=== PATIENT | female | born 1975 | race Caucasian/White ===

== ENCOUNTER 2021-06-08 12:02 | Emergency (ER) | payer SELFPAY ==
[~2021-06-08] VITALS: Ht 167.6 cm; Wt 112.1 kg
[~2021-06-08 12:02] MED LIST: BUPR150T15 PO; HYDR-2761 PO; HYDR50CA PO; IBUP400T99 PO
[2021-06-08] MEDS ORDERED: ONDANSETRON PF 4 MG/2 ML VIAL. IVP ONE (12:45)
[2021-06-08 13:00] LABS: BASO # 0.1 x10^3/uL (0.0-0.2); BASO % 1 % (0-3); EOS # 0.3 x10^3/uL (0.0-0.7); EOS % 4 % (0-3); HEMATOCRIT 35.6 % (36.0-47.0); HEMOGLOBIN 12.5 g/dL (12.0-15.5); LYMPH # 2.3 x10^3/uL (1.0-4.8); LYMPH % 32 % (24-48); MEAN CORPUSCULAR HEMOGLOBIN 34 pg (25-35); MEAN CORPUSCULAR HGB CONC 35 g/dL (31-37); MEAN CORPUSCULAR VOLUME 96 fL (79-100); MONO # 0.4 x10^3/uL (0.0-1.1); MONO % 5 % (0-9); NEUT # 4.1 x10^3/uL (1.8-7.7); NEUT % 57 % (31-73); PLATELET COUNT 257 x10^3/uL (140-400); RED BLOOD COUNT 3.72 x10^6/uL (3.50-5.40); RED CELL DISTRIBUTION WIDTH 15.8 % (11.5-14.5); WHITE BLOOD COUNT 7.2 x10^3/uL (4.0-11.0)
[2021-06-08] MEDS ORDERED: fentaNYL PF VIAL 100 MCG/2 ML VIAL IVP ONE ×2 (13:00→15:45)
--- NOTE | 2021-06-08 13:11 | RAD ---
AP chest. HISTORY: Epigastric pain AP portable view was taken of the chest. Comparison is made with a study from February 27, 2021. Ther e is no effusion. The heart is normal in size. Patient's taken a poor inspiration. There is mild line ar scarring or atelectasis near the left costophrenic angle similar to the prior study. No new conflu ent infiltrates are noted. IMPRESSION: 1. Poor inspiration. 2. No acute infiltrates. Electronically signed by: Geovany Marley MD (06/08/2021 1:09 PM) [facility]
[2021-06-08 13:19] LABS: INFLUENZA A PATIENT NEGATIVE (NEGATIVE); INFLUENZA B PATIENT NEGATIVE (NEGATIVE)
[2021-06-08 13:31] LABS: BACTERIA,URINE MANY /HPF (0-FEW); RBC,URINE OCC /HPF (0-2)
[2021-06-08 14:14] LABS: CALCIUM 8.7 mg/dL (8.5-10.1); CREATININE 0.9 mg/dL (0.6-1.0); GFR 67.7; POTASSIUM 4.1 mmol/L (3.5-5.1)
[2021-06-08 14:20] LABS: ALBUMIN 3.8 g/dL (3.4-5.0); ALBUMIN/GLOBULIN RATIO 0.9 (1.0-1.7); TOTAL BILIRUBIN 0.1 mg/dL (0.2-1.0)
[2021-06-08] MEDS ORDERED: IOHEXOL 300 MG/ML 100ML VIAL. IV ONE (14:30)
[2021-06-08] MEDS ORDERED: CONTRAST GIVEN. MC PRN (14:30)
--- NOTE | 2021-06-08 14:54 | RAD ---
CT abdomen pelvis with contrast. HISTORY: Epigastric pain, history of hernia CT abdomen pelvis was done using 75 mL Omnipaque 300 contrast. Comparison is made with a prior study from February 24, 2021. Lung bases are clear. Except for mild atelectasis. There is no effusion. A sommer er lesion is not identified. Spleen is unremarkable. Adrenal glands are normal. Pancreas is normal. T here is no mass or hydronephrosis in the kidneys. There is a 3 mm calculus in the lower left kidney. A ureteral calculus is not identified. There is an anterior abdominal wall hernia in the upper abdome n with fat or mesentery extending through the hernia. There is inflammation in the subcutaneous tissu es of the anterior abdominal wall inferior to the right of the hernia. There is mesh right side of th e abdomen from previous hernia surgery. Recurrent hernia is just cephalad and medial to the mesh. The re is no small bowel obstruction. Bladder is mildly distended. Uterus and ovaries are unremarkable. T here is moderate stool in the colon. There is mild gaseous distention of the colon. IMPRESSION: 1. Recurrent anterior abdominal wall hernia in the upper abdomen in the midline. 2. Changes from previous hernia surgery. 3. Mild subcutaneous inflammation right upper abdomen. 4. Mild stool and gas in the colon with mild distention. 5. Intrarenal calculus left kidney. PQRS Compliance Statement: One or more of the following individualized dose reduction techniques were utilized for this examinat ion: 1. Automated exposure control 2. Adjustment of the mA and/or kV according to patient size 3. Use of iterative reconstruction technique Electronically signed by: Geovany Marley MD (06/08/2021 2:51 PM) [facility] [place]
[2021-06-08 15:06] VITALS: BP 104/67
[2021-06-08] MEDS ORDERED: KETO10TA PO (15:51)
[2021-06-08] MEDS ORDERED: CEPH500C PO (15:51)
[2021-06-08] MEDS ORDERED: PSYL0.5215 PO (15:51)
--- NOTE | 2021-06-08 15:56 | PHYS DOC ---
Past Medical History Past Medical History: Hypothyroid Past Surgical History: Appendectomy, Cholecystectomy, Additional Past Surgical Histo: growth removed from right leg, hernia repair Smoking Status: Current Every Day Smoker Additional Information: 03/20 ppd Alcohol Use: None Drug Use: None Adult General Chief Complaint Chief Complaint: ABDOMINAL PAIN HPI HPI Patient is a 46 year old female presents with abdominal pains been present for the last 3 days or so. This is generalized and crampy but a bit worse in the right upper quadrant. Patient has a history of a ventral wall hernia with prior mesh repair. The hernia has become recurrent though. She has not had a fever, chest pain, shortness of breath. She has had some loose stools over the last few days as well. No blood in her stools. No dysuria. Review of Systems Review of Systems Constitutional: Denies fever Eyes: Denies change in visual acuity or eye pain HENT: Denies sore throat Respiratory: Denies shortness of breath Cardiovascular: Denies chest pain GI: Reports abd pain : Denies dysuria Musculoskeletal: Denies back or extremity injury Integument: Denies rash or skin lesions Neurologic: Denies headache, focal weakness or sensory changes All other systems were reviewed and found to be within normal limits, except as documented in this note. Current Medications Current Medications Current Medications Medications (Trade) Dose Ordered Sig/Juan Start Time Stop Time Status Last Admin Dose Admin Fentanyl Citrate (Fentanyl 2ml Vial) 50 mcg 1X ONCE 06/08/21 15:45 06/08/21 15:46 DC 06/08/21 15:40 50 MCG Info (CONTRAST GIVEN -- Rx MONITORING) 1 each PRN DAILY PRN 06/08/21 14:30 06/10/21 14:29 Iohexol (Omnipaque 300 Mg/ml) 75 ml 1X ONCE 06/08/21 14:30 06/08/21 14:31 DC 06/08/21 14:30 75 ML Ondansetron HCl (Zofran) 4 mg 1X ONCE 06/08/21 12:45 06/08/21 12:46 DC 06/08/21 13:02 4 MG Allergies Allergies Allergies Coded Allergies Type Severity Reaction Last Updated Verified Penicillins Allergy Severe hives, throat swells shut 02/25/21 No morphine Allergy Intermediate hives, anxiety 06/08/21 Yes I S O L A T I O N *CONTACT* Allergy Unknown 02/28/21 Yes Physical Exam Physical Exam Constitutional: Well developed, well nourished, no acute distress, non-toxic appearance. HENT: Normocephalic, atraumatic, bilateral external ears normal, mucosa moist, nose normal. Eyes: EOMI, conjunctiva normal, no discharge. Neck: Normal range of motion, supple, no stridor, no meningeal signs. Cardiovascular: Regular rate and rhythm Lungs & Thorax: Bilateral breath sounds clear to auscultation Abdomen: Soft, large anterior ventral wall hernia present, easily reducible. Skin: Warm, dry, no erythema, no rash. Extremities: No tenderness, no cyanosis, no clubbing, ROM intact, no edema. Neurologic: Alert and oriented, normal motor function, normal sensory function, no focal deficits noted. Psychologic: Affect normal, judgement normal, mood normal. Current Patient Data Vital Signs Vital Signs Date Time Temp Pulse Resp B/P (MAP) Pulse Ox O2 Delivery O2 Flow Rate FiO2 06/08/21 15:40 14 99 Room Air 06/08/21 15:06 64 104/67 (79) 06/08/21 12:28 98.5 98.5 Lab Values Laboratory Tests Test 06/08/21 12:25 06/08/21 12:30 06/08/21 12:51 Urine Collection Type Void Urine Color (Auto) Light yellow Urine Turbidity Clear Urine pH (Auto) 5.5 (<5.0-8.0) Urine Specific [place] 1.021 (1.000-1.030) Urine Protein (Auto) Negative mg/dL (Negative) Urine Glucose (Auto)(UA) Negative mg/dL (Negative) Urine Ketones (Auto) Negative mg/dL (Negative) Urine Blood (Auto) Negative (Negative) Urine Nitrite Negative (Negative) Urine Bilirubin (Auto) Negative (Negative) Urine Urobilinogen (Auto) Normal mg/dL (Normal) Urine Leukocyte Esterase (Auto) Moderate (Negative) Urine RBC Occ /HPF (0-2) Urine WBC 11-20 /HPF (0-4) Urine Squamous Epithelial Cells Few /LPF Urine Bacteria Many /HPF (0-FEW) POC Urine HCG, Qualitative Hcg negative (Negative) White Blood Count 7.2 x10^3/uL (4.0-11.0) Red Blood Count 3.72 x10^6/uL (3.50-5.40) Hemoglobin 12.5 g/dL (12.0-15.5) Hematocrit 35.6 % (36.0-47.0) L Mean Corpuscular Volume 96 fL (79-100) Mean Corpuscular Hemoglobin 34 pg (25-35) Mean Corpuscular Hemoglobin Concent 35 g/dL (31-37) Red Cell Distribution Width 15.8 % (11.5-14.5) H Platelet Count 257 x10^3/uL (140-400) Neutrophils (%) (Auto) 57 % (31-73) Lymphocytes (%) (Auto) 32 % (24-48) Monocytes (%) (Auto) 5 % (0-9) Eosinophils (%) (Auto) 4 % (0-3) H Basophils (%) (Auto) 1 % (0-3) Neutrophils # (Auto) 4.1 x10^3/uL (1.8-7.7) Lymphocytes # (Auto) 2.3 x10^3/uL (1.0-4.8) Monocytes # (Auto) 0.4 x10^3/uL (0.0-1.1) Eosinophils # (Auto) 0.3 x10^3/uL (0.0-0.7) Basophils # (Auto) 0.1 x10^3/uL (0.0-0.2) Sodium Level 136 mmol/L (136-145) Potassium Level 4.1 mmol/L (3.5-5.1) Chloride Level 99 mmol/L (98-107) Carbon Dioxide Level 27 mmol/L (21-32) Anion Gap 10 (6-14) Blood Urea Nitrogen 19 mg/dL (7-20) Creatinine 0.9 mg/dL (0.6-1.0) Estimated GFR (Cockcroft-Gault) 67.7 BUN/Creatinine Ratio 21 (6-20) H Glucose Level 201 mg/dL (70-99) H Calcium Level 8.7 mg/dL (8.5-10.1) Magnesium Level 2.0 mg/dL (1.8-2.4) Total Bilirubin 0.1 mg/dL (0.2-1.0) L Aspartate Amino Transferase (AST) 31 U/L (15-37) Alanine Aminotransferase (ALT) 24 U/L (14-59) Alkaline Phosphatase 65 U/L (46-116) Troponin I High Sensitivity 5 ng/L (4-50) Total Protein 8.0 g/dL (6.4-8.2) Albumin 3.8 g/dL (3.4-5.0) Albumin/Globulin Ratio 0.9 (1.0-1.7) L Lipase 178 U/L (73-393) Influenza Type A Antigen Negative (NEGATIVE) Influenza Type B Antigen Negative (NEGATIVE) SARS-CoV-2 Antigen (Rapid) Negative (NEGATIVE) Laboratory Tests 06/08/21 12:51 Laboratory Tests 06/08/21 12:51 EKG EKG [] Interpretation Time: Twelve-lead EKG demonstrates a sinus rhythm with an overall rate of 70. ID, QRS intervals are within normal limits, QT corrected is [address] segment elevation or depression. Radiology/Procedures Radiology/Procedures [] Impressions: PATIENT: JOVON PAULACCOUNT: [id number]#: [id number] : 1975 LOCATION: ER AGE: 46 SEX: F EXAM STATUS: REG ER ORD. PHYSICIAN: NICHOLAS AVILA MD REASON: epig pain PROCEDURE: CHEST AP ONLY AP chest. HISTORY: Epigastric pain AP portable view was taken of the chest. Comparison is made with a study from February 27, 2021. There is no effusion. The heart is normal in size. Patient's taken a poor inspiration. There is mild linear scarring or atelectasis near the left costophrenic angle similar to the prior study. No new confluent infiltrates are noted. IMPRESSION: 1. Poor inspiration. 2. No acute infiltrates. Electronically signed by: Geovany Marley MD (06/08/2021 1:09 PM) [facility] DICTATED and SIGNED BY: GEOVANY MARLEY MD DATE: 06/08/21 1308 PATIENT: JOVON PAUL ACCOUNT: [id number] : 1975 LOCATION: ER AGE: 46 SEX: F EXAM STATUS: REG ER ORD. PHYSICIAN: NICHOLAS AVILA MD REASON: epigastric pain, hx hernia PROCEDURE: CT ABD PELV W/ IV CONTRST ONLY CT abdomen pelvis with contrast. HISTORY: Epigastric pain, history of hernia CT abdomen pelvis was done using 75 mL Omnipaque 300 contrast. Comparison is made with a prior study from February 24, 2021. Lung bases are clear. Except for mild atelectasis. There is no effusion. A liver lesion is not identified. Spleen is unremarkable. Adrenal glands are normal. Pancreas is normal. There is no mass or hydronephrosis in the kidneys. There is a 3 mm calculus in the lower left kidney. A ureteral calculus is not identified. There is an anterior abdominal wall hernia in the upper abdomen with fat or mesentery extending through the hernia. There is inflammation in the subcutaneous tissues of the anterior abdominal wall inferior to the right of the hernia. There is mesh right side of the abdomen from previous hernia surgery. Recurrent hernia is just cephalad and medial to the mesh. There is no small bowel obstruction. Bladder is mildly distended. Uterus and ovaries are unremarkable. There is moderate stool in the colon. There is mild gaseous distention of the colon. IMPRESSION: 1. Recurrent anterior abdominal wall hernia in the upper abdomen in the midline. 2. Changes from previous hernia surgery. 3. Mild subcutaneous inflammation right upper abdomen. 4. Mild stool and gas in the colon with mild distention. 5. Intrarenal calculus left kidney. PQRS Compliance Statement: One or more of the following individualized dose reduction techniques were uti lized for this examination: 1. Automated exposure control 2. Adjustment of the mA and/or kV according to patient size 3. Use of iterative reconstruction technique Electronically signed by: Geovany Marley MD (06/08/2021 2:51 PM) [facility] Course & Med Decision Making Course & Med Decision Making Pertinent Labs and Imaging studies reviewed. (See chart for details) [] This 46-year-old female abdominal pain. On work-up she has a urinary tract infection and on CT scan appears to be fairly constipated. No evidence of bowel obstruction to the hernia. We will start her on Keflex for the UTI and Metamucil for the constipation. We will also give her prescription for Toradol for pain. She is to follow-up with her primary care physician or with general surgery sometime in the next week or so, she stable for discharge at this time. Dragon Disclaimer Dragon Disclaimer This electronic medical record was generated, in whole or in part, using a voice recognition dictation system. Departure Departure Impression: Primary Impression: UTI (urinary tract infection) Additional Impressions: Constipation Abdominal pain Recurrent hernia Disposition: HOME / SELF CARE / HOMELESS Condition: STABLE Referrals: NO PCP (PCP) SAVANNA KELLOGG MD Patient Instructions: Abdominal Pain, Constipation, Adult, Hernia, Urinary Tract Infection Scripts Psyllium Husk (METAMUCIL) 0.52 Gm Capsule 2 CAP PO BID for 30 Days, #120 CAP 0 Refills Prov: NICHOLAS AVILA MD 06/08/21 Ketorolac Tromethamine (KETOROLAC TROMETHAMINE) 10 Mg Tablet 1 TAB PO TID PRN for PAIN, #10 TAB Prov: NICHOLAS AVILA MD 06/08/21 Cephalexin (KEFLEX) 500 Mg Capsule 500 MG PO QID for 10 Days, #40 CAP Prov: NICHOLAS AVILA MD 06/08/21 Problem Qualifiers NICHOLAS AVILA MD Jun 08, 2021 15:56
--- NOTE | 2021-06-09 07:52 | EKG ---
[facility] [address] [place] [address] Test Date: 2021-06-08 Test Time: 12:56:39 Pat Name: JOVON PAUL Department: Room: Gender: F [place]yer: : 1975 Requested By: NICHOLAS AVILA Order Number: [id number] Reading MD: Torey Holder MD Measurements Intervals [place] Rate: 70 P: 45 SC: 154 QRS: 38 QRSD: 84 T: 28 QT: 496 QTc: 539 Interpretive Statements SINUS RHYTHM Electronically Signed On 06-10-2021 17:43:42 CDT by Torey Holder MD
== END 2021-06-08 16:02 | disposition home or self-care (01) ==
LOC: ER 12:02
DX: N39.0 Urinary tract infection, site not specified (principal); K59.00 Constipation, unspecified; K43.2 Incisional hernia without obstruction or gangrene; Z20.822 Contact with and (suspected) exposure to COVID-19; E03.9 Hypothyroidism, unspecified; F17.200 Nicotine dependence, unspecified, uncomplicated; Z90.89 Acquired absence of other organs; Z90.49 Acquired absence of other specified parts of digestive tract; Z88.0 Allergy status to penicillin; Z88.5 Allergy status to narcotic agent; Z91.041 Radiographic dye allergy status
CPT/HCPCS: 36415; 71045; 74177; 80053; 81001; 81025; 83690; 83735; 84484; 85025; 87077; 87086; 87186; 87428; 93005; 96374; 96375; 96376; 99285; J2405; J3010; Q9967